=== PATIENT | male | born 2000 | race Caucasian/White ===

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

== ENCOUNTER 2021-02-13 21:28 | Emergency (ER) | payer OTHER ==
[~2021-02-13] VITALS: Ht 167.6 cm; Wt 98.4 kg
[~2021-02-13 21:28] MED LIST: PANT40EC PO
[2021-02-13 21:41] VITALS: BP 109/63
--- NOTE | 2021-02-13 23:24 | NUR ---
pt taken to bed 07.
[2021-02-13] MEDS ORDERED: IBUPROFEN 800 MG TAB PO ONE (23:35)
--- NOTE | 2021-02-14 00:17 | NUR ---
US AT BEDSIDE
[2021-02-14 01:40] VITALS: BP 109/63
--- NOTE | 2021-02-14 01:40 | NUR ---
Patient discharged with v/s stable. Written and verbal after care instructions given and explained. Patient verbalized understanding. Ambulatory with steady gait. ARMBAND REMOVED. All questions addressed prior to discharge. Advised to follow up with PMD.
--- NOTE | 2021-02-14 01:58 | NUR ---
The patient's care was reviewed and supervised by LUIS SOMMERS RN.
== END 2021-02-14 01:40 | disposition home or self-care (01) ==
LOC: MED 21:28
DX: M25.562 Pain in left knee (principal); Z79.899 Other long term (current) drug therapy
CPT/HCPCS: 93971; 99285; Q0092

== ENCOUNTER 2023-01-14 10:23 | Emergency (ER) | payer OTHER ==
[~2023-01-14] VITALS: Ht 167.6 cm; Wt 94.8 kg
[2023-01-14 10:52] VITALS: BP 135/81; PULSE 78; RESP 18; TEMP 97; O2SAT 98
[2023-01-14 11:22] VITALS: O2SAT 98
[2023-01-14 11:45] LABS: APPEARANCE,URINE CLEAR (CLEAR); BILIRUBIN,URINE NEGATIVE (NEGATIVE); BLOOD, URINE NEGATIVE (NEGATIVE); COLOR,URINE YELLOW (YELLOW); LEUKOCYTE ESTERASE ,URINE NEGATIVE (NEGATIVE); NITRITE, URINE NEGATIVE (NEGATIVE); PROTEIN,URINE NEGATIVE (NEGATIVE); UGLUCOSE NEGATIVE (NEGATIVE); UROBILINOGEN,URINE 0.2 EU/dL (0.2 - 1)
[2023-01-14 12:04] LABS: BASOPHILS % (AUTO) 0.1 % (0.0-2.0); EOSINOPHILS # (AUTO) 0.1 K/uL (0-0.4); EOSINOPHILS % (AUTO) 1.2 % (0.0-4.0); HEMATOCRIT 42.9 % (36-52); HEMOGLOBIN 15.1 g/dL (12.0-18.0); LYMPHOCYTES # (AUTO) 1.5 K/uL (2.0-11.5); MEAN CORPUSCULAR HEMOGLOBIN 33 pg (27-31); MEAN CORPUSCULAR HGB CONC 35 g/dL (33-37); MEAN CORPUSCULAR VOLUME 92.8 fL (80-94); MONOCYTES # (AUTO) 0.8 K/uL (0.8-1.0); MONOCYTES % (AUTO) 10.9 % (1.7-9.3); NEUTROPHILS # (AUTO) 4.7 K/uL (1.8-7.7); NEUTROPHILS % (AUTO) 66.8 % (42.2-75.2); PLATELET COUNT (AUTO) 164 K/uL (140-450); RED BLOOD CELL COUNT(AUTO) 4.63 MIL/uL (4.20-6.10); RED CELL DISTRIBUTION WIDTH 12.6 % (11.6-13.7); WHITE BLOOD COUNT (AUTO) 7.1 K/uL (4.8-10.8)
[2023-01-14 12:25] LABS: ANION GAP 9.7 (8-16); CALCIUM 7.9 mg/dL (8.5-10.1); CARBON DIOXIDE 30.1 mmol/L (21-32); CREATININE 0.8 mg/dL (0.6-1.3); POTASSIUM 3.8 mmol/L (3.5-5.1)
[2023-01-14] MEDS ORDERED: MAG-27 PO (13:02)
[2023-01-14] MEDS ORDERED: LOPE1TAB14 PO (13:02)
[2023-01-14] MEDS ORDERED: DICYCLOMINE HCL LIQUID 20 MG, ALUMINUM HYD/MAG/SIMETHICONE 30 ML, LIDOCAINE VISCOUS 2% ... PO ONE ×3 (13:05)
[2023-01-14] MEDS ORDERED: ALUMINUM HYD/MAG/SIMETHICONE 30 ML UDC ONE (13:14)
[2023-01-14] MEDS ORDERED: DICYCLOMINE HCL LIQUID 10 MG/5 ML UDC ONE (13:14)
== END 2023-01-14 13:27 | disposition home or self-care (01) ==
LOC: MED 10:23
DX: K29.70 Gastritis, unspecified, without bleeding (principal); R19.7 Diarrhea, unspecified; Z79.899 Other long term (current) drug therapy
CPT/HCPCS: 36415; 74018; 80048; 81003; 85025; 99284

== ENCOUNTER 2023-10-19 18:22 | Emergency (ER) | payer OTHER ==
[~2023-10-19] VITALS: Ht 167.6 cm; Wt 104.0 kg
[~2023-10-19 18:22] MED LIST changes: +LOPE1TAB14 PO; +MAG-27 PO
[2023-10-19 18:56] VITALS: BP 156/102; PULSE 115; RESP 19; TEMP 98.5; O2SAT 95
[2023-10-19 20:22] LABS: FLU A ANTIGEN negative (NEGATIVE); FLU B ANTIGEN NEGATIVE (NEGATIVE)
[2023-10-19 20:37] VITALS: BP 156/102; RESP 19; TEMP 98.5
[2023-10-19 21:11] VITALS: O2SAT 95
[2023-10-19] MEDS ORDERED: BENZ200C4 PO (21:28)
[2023-10-19 21:43] VITALS: PULSE 92
== END 2023-10-19 21:45 | disposition home or self-care (01) ==
LOC: MED 18:22
DX: B34.9 Viral infection, unspecified (principal); Z20.822 Contact with and (suspected) exposure to COVID-19; Z79.899 Other long term (current) drug therapy
CPT/HCPCS: 71045; 87426; 87804; 99284; Q0092

== ENCOUNTER 2023-11-27 06:51 | Emergency (ER) | payer OTHER ==
[~2023-11-27] VITALS: Ht 170.2 cm; Wt 90.7 kg
[2023-11-27 06:51] VITALS: BP 139/91; PULSE 96; RESP 16; TEMP 98.7; O2SAT 100
[~2023-11-27 06:51] MED LIST changes: +ALBU0.0912 IH; +BENZ200C4 PO; -LOPE1TAB14 PO; -MAG-27 PO; -PANT40EC PO
[2023-11-27] MEDS: ONDANSETRON 4 MG/2 ML VIAL IVP ONE (07:19)
[2023-11-27] MEDS: NACL 0.9% 1,000 ML IV ONE (07:19)
[2023-11-27] MEDS: FAMOTIDINE 20 MG/2 ML VIAL IVP ONE (07:20)
[2023-11-27 07:34] LABS: BASOPHILS % (AUTO) 0.2 % (0.0-2.0); EOSINOPHILS % (AUTO) 0.6 % (0.0-4.0); HEMATOCRIT 42.6 % (36-52); HEMOGLOBIN 14.7 g/dL (12.0-18.0); LYMPHOCYTES # (AUTO) 1.4 K/uL (2.0-11.5); LYMPHOCYTES % (AUTO) 19.3 % (20.5-51.1); MEAN CORPUSCULAR HEMOGLOBIN 32 pg (27-31); MEAN CORPUSCULAR HGB CONC 35 g/dL (33-37); MONOCYTES # (AUTO) 0.5 K/uL (0.8-1.0); MONOCYTES % (AUTO) 6.9 % (1.7-9.3); NEUTROPHILS # (AUTO) 5.2 K/uL (1.8-7.7); PLATELET COUNT (AUTO) 174 K/uL (140-450); RED BLOOD CELL COUNT(AUTO) 4.54 MIL/uL (4.20-6.10); RED CELL DISTRIBUTION WIDTH 13.1 % (11.6-13.7); WHITE BLOOD COUNT (AUTO) 7.1 K/uL (4.8-10.8)
[2023-11-27] MEDS: KETOROLAC 30 MG/ML VIAL IVP ONE (07:46)
[2023-11-27 07:58] LABS: ANION GAP 17.8 (8-16); CALCIUM 7.8 mg/dL (8.5-10.1); CARBON DIOXIDE 23.9 mmol/L (21-32); CREATININE 0.9 mg/dL (0.6-1.3); POTASSIUM 3.7 mmol/L (3.5-5.1)
[2023-11-27] MEDS: LORazepam 1 MG TAB PO ONE (08:01)
[2023-11-27 08:09] LABS: ALBUMIN 4.2 g/dL (3.4-5.0); BILIRUBIN,DIRECT 0.2 mg/dL (0.0-0.3); TOTAL BILIRUBIN 0.8 mg/dL (0.0-1.0); TOTAL PROTEIN, SERUM 7.2 g/dL (6.4-8.2)
[2023-11-27] MEDS ORDERED: ATA25 PO (08:17)
[2023-11-27 09:03] VITALS: BP 145/77; PULSE 96; RESP 16; TEMP 98; O2SAT 96
== END 2023-11-27 09:03 | disposition home or self-care (01) ==
LOC: MED 06:51
DX: R07.9 Chest pain, unspecified (principal); K29.70 Gastritis, unspecified, without bleeding; F41.9 Anxiety disorder, unspecified; R00.0 Tachycardia, unspecified; R51.9 Headache, unspecified; Z79.899 Other long term (current) drug therapy
CPT/HCPCS: 36415; 80048; 80076; 83690; 85025; 93005; 96361; 96374; 96375; 99284; J1885; J2405; J3490; J7030